=== PATIENT | female | born 1990 | race Two or more races ===

== ENCOUNTER 2021-01-23 09:19 | Emergency (ER) | payer MEDICAID, SELFPAY ==
[2021-01-23 09:22] VITALS: BP 129/86; PULSE 87; RESP 18; TEMP 36.4; O2SAT 99; BMI 44.9
--- NOTE | 2021-01-23 10:34 | ED.FEMALEGU ---
HPI - Female Genitourinary General Chief complaint: Urogenital-Female Stated complaint: ?UTI Time Seen by Provider: 01/23/21 09:39 Source: patient Mode of arrival: ambulatory Limitations: no limitations History of Present Illness HPI Narrative: 30 yo female presenting with complaints of UTI for the last 1 week. She states she has burning with urination, increased frequency and urgency. She has lower abdominal discomfort and yesterday that radiates into her right lower back. She is sexually active but is s/p tubal ligation, not concerned for or STI. She has no vaginal discharge. MD elicited complaint: dysuria, UTI and back pain Pertinent past history: recurrent UTIs (not in a few years) Onset (ago): week(s) (1) Location of symptoms: suprapubic and urethra Severity: moderate Female Urogenital Radiation: R Flank Severity scale (1-10): 6 Quality of pain: burning Consistency: intermittent Vaginal discharge: none Vaginal bleeding: none Urinary symptoms: Dysuria, Urgency, Frequency and Foul Smelling Urine Exacerbating factors: urination Relieving factors: none Associated symptoms: fever (101 x1 yesterday) and nausea Treatment prior to arrival: none Sexual activity: Yes Patient : No Related Data Previous Rx's Medication Instructions Recorded nitrofurantoin 100 mg PO Q12H 7 Days #14 cap 01/23/21 monohydrate/macrocrystals 100 mg capsule (Macrobid) Allergies Allergy/AdvReac Type Severity Reaction Status Date / Time No Known Allergies Allergy Unverified 01/10/20 19:51 [No Known Allergies*] Review of Systems Review of Systems: Constitutional: + Fever, No Chills Cardiovascular: No Chest Pain, No SOB, No Orthopnea, No Edema Respiratory: No Cough, No Sputum, No Wheezing, No dyspnea Gastrointestinal: + Nausea, No Vomiting, No Diarrhea, No abdominal Pain Genitourinary: + Dysuria, + Urinary Frequency, No Hematuria Musculoskeletal: No joint pain, + Myalgias Skin: No Skin Lesions, No rash Neuro: No Dizziness, Heme/Lymph: No Bruising, No Lymphadenopathy PMFSH Past Medical History Medical History (Updated 01/23/21 @ 11:15 by DANIELLE Cantu) No known health problems Social History Social History Advance Directives: No Patient : No Physical Exam Vital Signs: Vital Signs: Last Vital Signs Temp 97.5 F 01/23/21 09:22 Pulse 87 01/23/21 09:22 Resp 18 01/23/21 09:22 BP 129/86 01/23/21 09:22 Pulse Ox 99 01/23/21 09:22 Body Mass Index 44.9 Appearance: Alert. Oriented X3. No acute distress. HEENT: normal to inspection Neck: Normal inspection. Neck supple. CVS: Normal heart rate and rhythm. Pulses normal. Respiratory: No respiratory distress. Breath sounds normal. Abdomen: Soft and nontender. +BS x4. No CVA tenderness. Pelvic deferred. Skin: Skin warm and dry. Normal skin color. Normal skin turgor. No rashes. Extremities: No lower extremity edema. Neuro: Oriented X 3, nonfocal Course Course Course Narrative: 30 y/o female presenting with signs and symptoms of UTI. Afebrile and nontoxic on exam, no CVA tenderness. Doubt pyelonephritis. UA showing blood consistent with cystitis. Will treat with PO abx given her symptoms. Encouraged to follow up with PCP for follow up. Stable for d/c home. MDM - Female Genitourinary Lab Data Labs: Lab Results 01/23/21 01/23/21 Range/Units 10:27 10:27 Urine Color YELLOW Urine Appearance HAZY Urine pH 6.0 (5.0-8.0) Ur Specific [place] >= 1.030 H (1.005-1.025) Urine Protein NEG (NEG-TRACE) MG/DL Urine Glucose (UA) NEG (NEG) MG/DL Urine Ketones NEG (NEG) MG/DL Urine Blood 2+ H (NEG) Urine Nitrite NEG (NEG) Ur Leukocyte Esterase NEG (NEG) Urine RBC 5-9 H (0) /HPF Urine WBC 0 (0-4) /HPF Ur Squamous Epith Cells 2+ /LPF Urine Bacteria NONE /LPF Urine Mucus 2+ /LPF Urine Test NEGATIVE (NEGATIVE) Critical Care Time Critical Care Time Critical Care Time: No Discharge Plan Discharge Clinical Impression: Cystitis Patient Disposition: Home, Self-Care Instructions: Urinary Tract Infection in Women (ED), Interstitial Cystitis (ED) Additional Instructions: Take the antibiotic as prescribed. Drink plenty of water. No sexual activity until antibiotics are completed and all of your symptoms are completely resolved. Follow up with your doctor. If you develop new or worsening symptoms call 911 or come back to the ER for further evaluation. Prescriptions: New nitrofurantoin monohyd/m-cryst [Macrobid] 100 mg capsule 100 mg PO Q12H 7 Days Qty: 14 RF: 0 Referrals: Kaelyn Adams, BUSINESS SERVICES SALES REPRESENTATIVE [Primary Care Provider] - 1 week Interventions: ED Discharge Assessment Last Done: 01/23/21 11:28 Discharge Date/Time: 01/23/21 11:28
[2021-01-23 10:35] LABS: Appearance Urine HAZY; Color Urine YELLOW; Glucose Urine UA NEG (NEG); Leukocyte Esterase Urine NEG (NEG); Nitrite Urine NEG (NEG); Specific Gravity - Urine >= 1.030 (1.005-1.025); UACC Culture Trigger NO; Urine Blood 2+ (NEG); Urine Ketones NEG (NEG); Urine Protein NEG (NEG-TRACE)
[2021-01-23 10:37] LABS: UPreg QC Valid YES; Urine Pregnancy NEGATIVE (NEGATIVE)
[2021-01-23 10:46] LABS: Mucus Urine 2+ /LPF; Squamous Epithelial Cell Urine 2+ /LPF; WBC Urine 0 /HPF (0-4)
== END 2021-01-23 11:28 | disposition home or self-care (01) ==
PROVIDERS: Physician Assistant; Emergency Provider Emergency Medicine; PCP Nurse Practitioner Family
DX: N30.10 Interstitial cystitis (chronic) without hematuria (principal); R30.0 Dysuria; Z79.899 Other long term (current) drug therapy
CPT/HCPCS: 81001; 81025; 99283; 99284

== ENCOUNTER 2021-10-30 07:14 | Emergency (ER) | payer MEDICAID, SELFPAY ==
[2021-10-30 07:17] VITALS: BP 116/75; PULSE 108; RESP 20; TEMP 36.3; O2SAT 97; BMI 44.9
--- NOTE | 2021-10-30 07:26 | ED.SKABFB ---
HPI - Skin/Abscess/Foreign Bdy General Chief complaint: Skin/Abscess/Foreign Body Stated complaint: Rash Time Seen by Provider: 10/30/21 07:26 Source: patient Mode of arrival: ambulatory Limitations: no limitations History of Present Illness MD complaint: rash (hives) Onset (ago): hour(s) (just prior to arrival ) Tetanus up to date: unsure Location: generalized Severity: moderate Quality: pruritic Relieving factors: none Exacerbating factors: none Context: none Associated symptoms: denies other symptoms Treatments prior to arrival: none Related Data Previous Rx's Medication Instructions Recorded nitrofurantoin 100 mg PO Q12H 7 days #14 caps 01/23/21 monohydrate/macrocrystals 100 mg capsule (Macrobid) cetirizine 10 mg tablet 10 mg PO DAILY PRN allergy 10/30/21 symptoms #30 tabs famotidine 20 mg tablet (Pepcid) 20 mg PO DAILY #10 tabs 10/30/21 prednisone 20 mg tablet 40 mg PO DAILY 4 days #8 tabs 10/30/21 Allergies Allergy/AdvReac Type Severity Reaction Status Date / Time No Known Allergies Allergy Unverified 10/30/21 07:20 [No Known Allergies*] Review of Systems Review of Systems: Constitutional : No Fever, No Chills ENT/Mouth : no oral swelling, No Hoarseness, No Swallowing Difficulty Eyes: No Eye Pain, No Swelling, No Redness Cardiovascular : No Chest Pain, No SOB Respiratory : No Cough, No Sputum, No Wheezing, No Smoke Exposure, No Dyspnea Gastrointestinal : No Nausea, No Vomiting, No Diarrhea, No abdominal Pain Genitourinary : No Dysuria, No Urinary Frequency, No Hematuria Musculoskeletal : No joint pain, No Myalgias, No Joint Swelling Skin : No Skin Lesions, positive rash Neuro : No Weakness, No Numbness, No Headache Psych : No Anxiety/Panic, No Depression Heme/Lymph: No Bruising, No Lymphadenopathy Endocrine : No Polyuria, No Polydipsia All other systems reviewed and are negative [facility] Past Medical History Attestation statement: The following information was validated with the patient. Medical History No known health problems Social History Social History (Updated 10/30/21 @ 07:37 by Maryuri Gonzalez DO) Patient Tobacco Use Status: Never used Tobacco Advance Directives: Yes Advance Directives Information Provided: Yes Advance Directives on File: No Physical Exam Vital Signs: Vital Signs: Last Vital Signs Temp 97.4 F 10/30/21 07:17 Pulse 108 H 10/30/21 07:17 Resp 20 10/30/21 07:17 BP 116/75 10/30/21 07:17 Pulse Ox 97 10/30/21 07:17 O2 Del Method 10/30/21 07:17 BMI result Body Mass Index 44.9 Appearance: Alert. Oriented X3. No acute distress. Eyes: Pupils equal, round and reactive to light. ENT: Pharynx normal. no swelling Neck: Normal inspection. Neck supple. CVS: Normal heart rate and rhythm. Pulses normal. Respiratory: No respiratory distress. Breath sounds normal. Abdomen: Soft and nontender. Skin: Skin warm and dry. Normal skin color. diffuse patchy hives noted on trunk and extremities - not covered in patchy areas Extremities: No lower extremity edema. No calf ttp Neuro: Oriented X 3. No motor deficit. No sensory deficit. MDM - Skin/Abscess/Foreign Bdy MDM Narrative Medical decision making narrative: 31 yo female with no sig PMH comes in with patchy hives on her body no airway involvement - no known exposures or new medications. Refuses to take benadryl - at this time will offer claritin, pepcid, prednisone and observe Discharge Plan Discharge Clinical Impression: Urticaria Instructions: Urticaria (ED) Additional Instructions: return to ED for any worsening symptoms or concerns Prescriptions: New famotidine [Pepcid] 20 mg tablet 20 mg PO DAILY Qty: 10 0RF cetirizine 10 mg tablet 10 mg PO DAILY PRN (Reason: allergy symptoms) Qty: 30 0RF prednisone 20 mg tablet 40 mg PO DAILY 4 Days Qty: 8 0RF No Action nitrofurantoin monohyd/m-cryst [Macrobid] 100 mg capsule 100 mg PO Q12H 7 Days Qty: 14 0RF Rx Instructions: must administer with a meal/food Referrals: Physician,None [Primary Care Provider] - (PCP if not better in 2 days) Stand Alone Forms: Work/School Release
[2021-10-30] MEDS: Loratadine 10 MG TABLET PO (08:34)
[2021-10-30] MEDS: Famotidine 20 MG TABLET PO (08:34)
[2021-10-30] MEDS: predniSONE 20 MG TABLET 60 MG PO (08:34)
--- NOTE | 2021-10-30 08:35 | PC.NURSE ---
PT EVALUATED BY PROVIDER. MEDICATIONS ORDERED. PT MEDICATED. C/O ITCHY RASH. AIRWAY PATENT. MANAGING SECRETIONS. NO ACUTE DISTRESS NOTED.
== END 2021-10-30 09:09 | disposition home or self-care (01) ==
PROVIDERS: Emergency Provider Emergency Medicine
DX: L50.9 Urticaria, unspecified (principal)
CPT/HCPCS: 99283

== ENCOUNTER 2021-10-31 07:50 | Emergency (ER) | payer MEDICAID, SELFPAY ==
[2021-10-31 07:53] VITALS: BP 157/90; PULSE 98; RESP 18; TEMP 36.8; O2SAT 97; BMI 44.9
--- NOTE | 2021-10-31 09:43 | ED_ITS ---
HPI - Skin/Abscess/Foreign Bdy General Chief complaint: Skin/Abscess/Foreign Body Stated complaint: returning for rash on vagina Time Seen by Provider: 10/31/21 08:09 Source: patient Mode of arrival: ambulatory Limitations: no limitations History of Present Illness HPI narrative: 31-year-old female who was here yesterday and diagnosed with an itchy rash. Patient had patchy hives, and Claritin, Pepcid, and prednisone were sent to her pharmacy. Patient states the rash started 05:00 yesterday morning. Patient pharmacy is [facility] , [address], patient states she went there twice yesterday and the pharmacy did not receive her prescriptions. She did buy [id number] Claritin, it did not help She denies throat swelling, wheezing, shortness of breath, she denies any new soaps, lotions, shampoos, body washes, conditioners, new clothes, new foods, new sheets, new pets. Patient has no allergies that she knows of, although she does states that Benadryl makes her anxious so she cannot take Benadryl complaint: rash Onset (ago): day(s) (1) Tetanus up to date: unsure Location: chest, LLE and RLE Severity: severe Quality: pruritic Relieving factors: none Associated symptoms: denies other symptoms Treatments prior to arrival: other (Claritin) Related Data Previous Rx's Medication Instructions Recorded nitrofurantoin 100 mg PO Q12H 7 days #14 caps 01/23/21 monohydrate/macrocrystals 100 mg capsule (Macrobid) cetirizine 10 mg tablet 10 mg PO DAILY PRN allergy 10/30/21 symptoms #30 tabs famotidine 20 mg tablet (Pepcid) 20 mg PO DAILY #10 tabs 10/30/21 prednisone 20 mg tablet 40 mg PO DAILY 4 days #8 tabs 10/30/21 famotidine 20 mg tablet 20 mg PO DAILY 7 days #7 tabs 10/31/21 prednisone 20 mg tablet 60 mg PO DAILY 5 days #15 tabs 10/31/21 Allergies Allergy/AdvReac Type Severity Reaction Status Date / Time No Known Allergies Allergy Unverified 10/30/21 07:20 [No Known Allergies*] Review of Systems Constitutional: Constitutional: Denies body ache(s), Denies chills, Denies fatigue, Denies fever(s), Denies headache(s), Denies malaise and Denies weakness Eyes: Eyes: Denies diplopia ENT: Denies vertigo, Denies dizziness, Denies otalgia, Denies headache(s), Denies mouth pain, Denies post nasal drip, Denies sinus pain, Denies sinus pressure, Denies sore throat and Denies throat swelling Cardiovascular: Cardiovascular: Denies chest pain, Denies syncope, Denies leg edema, Denies lightheadedness, Denies Loss of Consciousness, Denies palpitations and Denies dyspnea Respiratory: Respiratory: Denies chest congestion, Denies cough and Denies dyspnea Gastrointestinal: Gastrointestinal: Denies abdominal pain, Denies hematochezia, Denies constipation, Denies diarrhea, Denies nausea and Denies vomiting Musculoskeletal: Musculoskeletal: Reports no additional musculoskeletal complaints Integumentary/Breasts: Skin/Breast: Reports rash, Denies skin pain and Denies unusual bruising Neurologic: Denies confusion, Denies vertigo, Denies dizziness, Denies syncope, Denies headache(s) and Denies weakness Psychiatric: Psychiatric: Denies anxiety, Denies confusion and Denies depression Endocrine: Endocrine: Denies fatigue and Denies palpitations Allergic/Immunologic: Allergic/Immunologic: Denies throat swelling PMFSH Past Medical History Medical History No known health problems Social History Social History (Updated 10/30/21 @ 07:37 by Maryuri Gonzalez DO) Patient Tobacco Use Status: Never used Tobacco Advance Directives: No Advance Directives Information Provided: Yes Physical Exam Vital Signs: Vital Signs: Last Vital Signs Temp 98.2 F 10/31/21 07:53 Pulse 98 10/31/21 07:53 Resp 18 10/31/21 07:53 BP 157/90 H 10/31/21 07:53 Pulse Ox 97 10/31/21 07:53 O2 Del Method 10/31/21 07:53 BMI result Body Mass Index 44.9 Const: General: No confusion Nutritional Appearance: well nourished Orientation/consciousness: No confusion Limitations: no limitations HEENT: Head: Yes normal to inspection, Yes normocephalic and Yes atraumatic Ears: hearing grossly normal bilaterally, external ears normal, TM's normal bilaterally and EAC's normal General nose exam: Normal external nose present Face and sinus: Yes normal facial exam and Yes sinuses nontender Mouth: Normal oral and palatal mucosa present Throat: Yes posterior oropharynx normal Eyes: Conjunctivae: conjunctivae normal Pupils: Equal, round and reactive pupils present EOM: EOMs intact bilaterally Neck: Neck: Yes full ROM, Yes no lymphadenopathy and Yes supple Resp: Effort & Inspection: normal respiratory effort and able to speak in complete sentences Auscultation: clear to auscultation bilaterally, no crackles, no rales, no rhonchi and no wheezes Cardio: Rate: regular rate Rhythm: regular rhythm Heart sounds: S1 normal heart sound present and S2 normal heart sound present GI: Inspection: Yes normal to inspection Palpation (GI): Soft to palpation, nontender, no guarding and not rigid Percussion: Yes normal to percussion Auscultation: normal bowel sounds Skin: Other: Urticarial rash bilateral inner thighs, across patient's upper trunk Rash is erythematous, and in wheals Rashes: rashes noted Neuro: General: No confusion Cranial nerves: Yes Equal, round and reactive pupils present Extrem: General: Yes normal to inspection and Yes full ROM Psych: Appearance: grossly normal Affect: normal affect Attitude: cooperative Thought process: Normal thought process present Course Course Course Narrative: 31-year-old female presents with an urticarial hive like rash that started 05:00 this morning with no known allergen. Patient tried to fill a prescription at her pharmacy yesterday, but states that prescriptions were not sent to the pharmacy yesterday. Will represcribed prednisone and Pepcid. Patient states she cannot take Benadryl. Counseled patient to call emergency room in as for me if she cannot fill these prescriptions or if there is a problem. Counseled patient to return to emergency room she has any throat swelling, lip swelling, face swelling, shortness of breath, wheezing, chest pain. Patient has verbalized agreement and understanding Discharge Plan Discharge Clinical Impression: Rash Patient Disposition: Home, Self-Care Additional Instructions: Please call me of these prescriptions do not arrive at your pharmacy. I am here until 18:00, my name is Laura. Please take prednisone right when you get it, take it in the morning on the following 4 days, as it can make you have trouble sleeping Please call your PCP for follow-up appointment, they may want to send you to an brass and wind instrument repairer for testing to try to find out what you are reacting to Please return to emergency room if you have any wheezing, sensation of throat closing, trouble breathing, chest pain, abdominal pain, vomiting, or any other new or concerning symptoms Prescriptions: New famotidine 20 mg tablet 20 mg PO DAILY 7 Days Qty: 7 0RF prednisone 20 mg tablet 60 mg PO DAILY 5 Days Qty: 15 0RF No Action famotidine [Pepcid] 20 mg tablet 20 mg PO DAILY Qty: 10 0RF cetirizine 10 mg tablet 10 mg PO DAILY PRN (Reason: allergy symptoms) Qty: 30 0RF prednisone 20 mg tablet 40 mg PO DAILY 4 Days Qty: 8 0RF nitrofurantoin monohyd/m-cryst [Macrobid] 100 mg capsule 100 mg PO Q12H 7 Days Qty: 14 0RF Rx Instructions: must administer with a meal/food Interventions: ED Discharge Assessment Last Done: 10/31/21 08:26 Discharge Date/Time: 10/31/21 08:52
== END 2021-10-31 08:52 | disposition home or self-care (01) ==
LOC: HO.ED 08:36
PROVIDERS: Emergency Provider Emergency Medicine
DX: L50.9 Urticaria, unspecified (principal)
CPT/HCPCS: 99282; 99283

== ENCOUNTER 2022-08-04 07:36 | Emergency (ER) | payer OTHER, SELFPAY ==
[2022-08-04 07:40] VITALS: BP 136/84; PULSE 90; RESP 17; TEMP 36.7; O2SAT 98; BMI 44.9
[2022-08-04 08:11] VITALS: BP 120/61; PULSE 83; RESP 19; TEMP 36.4; O2SAT 100
--- NOTE | 2022-08-04 08:30 | ED.URI ---
HPI - URI/Sore Throat General Chief Complaint: Upper Respiratory Symptoms Stated Complaint: Cough Sore Throat Ear Pain Time Seen by Provider: 08/04/22 08:02 Source: patient Mode of arrival: ambulatory Limitations: no limitations History of Present Illness HPI Narrative: 32 yo female presenting to the ER for evaluation of bilateral ear pain, sore throat and dry cough that started yesterday. She states the cough kept her up last night causing pain in her back and chest. She reports some nasal congestion with green nasal discharge as well. She has no history of seasonal allergies. No watery eyes or sneezing. She denies any chest pain, SOB, difficulty breathing, N/V/D or abdominal pain. No fevers or sick contacts. MD elicited complaint: cough, sore throat, nasal congestion and other (ear pain) Onset (ago): day(s) (1) Consistency: progressively worsening Severity: moderate Description of mucous: green Able to tolerate fluids by mouth: Yes Exacerbating factors: supine positioning Relieving factors: nothing Associated symptoms: headache, nasal congestion, sore throat and cough Treatments prior to arrival: none Related Data Previous Rx's Medication Instructions Recorded nitrofurantoin 100 mg PO Q12H 7 days #14 caps 01/23/21 monohydrate/macrocrystals 100 mg capsule (Macrobid) cetirizine 10 mg tablet 10 mg PO DAILY PRN allergy 10/30/21 symptoms #30 tabs famotidine 20 mg tablet (Pepcid) 20 mg PO DAILY #10 tabs 10/30/21 prednisone 20 mg tablet 40 mg PO DAILY 4 days #8 tabs 10/30/21 famotidine 20 mg tablet 20 mg PO DAILY 7 days #7 tabs 10/31/21 prednisone 20 mg tablet 60 mg PO DAILY 5 days #15 tabs 10/31/21 benzonatate 100 mg capsule 100 mg PO TID PRN cough #30 caps 08/04/22 fluticasone propionate 50 1 spray intranasal BID #16 grams 08/04/22 mcg/actuation nasal spray,suspension (Flonase Allergy Relief) hydrocodone-homatropine 5 mg-1.5 5 ml PO Q4H PRN cough #60 mL 08/04/22 mg/5 mL (5 mL) oral syrup (Hycodan) ibuprofen 600 mg tablet 600 mg PO Q8H PRN fever or pain 08/04/22 #14 tabs Allergies Allergy/AdvReac Type Severity Reaction Status Date / Time No Known Allergies Allergy Verified 08/04/22 07:42 [No Known Allergies*] Review of Systems Review of Systems: Yes all other systems are reviewed and are negative [facility] Past Medical History Medical History No known health problems Social History Social History (Updated 10/30/21 @ 07:37 by Ana Gonzalez DO) Alcohol intake: never Patient Tobacco Use Status: Never used Tobacco Smoked in Last 30 Days: No Use of substances other than those prescribed or required for medical reasons: No Advance Directives: No Advance Directives Information Provided: Yes Physical Exam Vital Signs: Vital Signs: Last Vital Signs Temp 97.6 F 08/04/22 08:11 Pulse 83 08/04/22 08:11 Resp 19 08/04/22 08:11 BP 120/61 08/04/22 08:11 Pulse Ox 100 08/04/22 08:11 O2 Del Method Room Air 08/04/22 08:11 BMI result Body Mass Index 44.9 Appearance: Alert. Oriented X3. No acute distress. Head: normocephalic, atraumatic. Eyes: Pupils equal, round and reactive to light. ENT: Pharynx normal. s/p tonsillectomy. minimal posterior pharyngeal erythema. uvula midline. nares with clear nasal discharge. TMs bilaterally have effusion but no erythema or bulging. Neck: Normal inspection. Neck supple. CVS: Normal heart rate and rhythm. Pulses normal. Respiratory: No respiratory distress. Breath sounds normal. Skin: Skin warm and dry. Normal skin color. Normal skin turgor. No rashes. Extremities: No lower extremity edema. No joint swelling. Neuro/psych: Oriented X 3. grossly normal, nonfocal. Normal speech and cognition. Medical Decision Making Medical Decision Making MDM Narrative: 32 yo female presenting with sore throat, ear pain, dry cough and nasal congestion since yesterday. VSS on arrival and physical exam is benign. Viral PCR negative for covid, flu and rsv. most likely viral URI - we discussed symptomatic management and supportive care. will d/c home with antitussives, work not provided per request Differential Diagnosis Differential Diagnoses: The differential diagnosis associated with the presentation includes strep, covid, flu, rsv, other viral syndrome, bronchitis, pneumonia, seasonal allergies, no evidence of peritonsillar abcsess or retropharyngeal abscess Lab Data MDM Lab Attestation statement: I reviewed the patient's lab results. Labs: Lab Results 08/04/22 Range/Units 07:58 Influenza Type A (PCR) NEGATIVE (Negative) Influenza Type B (PCR) NEGATIVE (Negative) RSV RNA Qual (PCR) NEGATIVE (Negative) SARS-CoV-2 RNA (RT-PCR) NEGATIVE (Negative) External Record Review External record reviewed: Outpatient record and Prior outpatient labs Prescription Management I considered prescription management with: Other (antitussives ) Critical Care Time Critical Care Time Critical Care Time: No Discharge Plan Discharge Clinical Impression: Viral URI with cough Patient Disposition: Home, Self-Care Instructions: Viral Syndrome (ED) Additional Instructions: You tested negative for COVID, Flu and RSV Symptoms are most likely due to another viral illness Treatment is rest and supportive care Take over the counter medications as needed for your symptoms Take the prescribed medications as directed Rest and drink plenty of fluids Follow up with your primary care doctor If you develop new or worsening symptoms call 911 or come back to the ER for further evaluation. Prescriptions: New benzonatate 100 mg capsule 100 mg PO TID PRN (Reason: cough) Qty: 30 0RF hydrocodone-homatropine [Hycodan] 5-1.5 mg/5 mL (5 mL) syrup 5 ml PO Q4H PRN (Reason: cough) Qty: 60 0RF Rx Instructions: Partial Fill upon patient request. fluticasone propionate [Flonase Allergy Relief] 50 mcg/actuation spray,suspension 1 spray intranasal BID Qty: 16 0RF Rx Instructions: administer into each nostril ibuprofen 600 mg tablet 600 mg PO Q8H PRN (Reason: fever or pain) Qty: 14 0RF No Action famotidine [Pepcid] 20 mg tablet 20 mg PO DAILY Qty: 10 0RF cetirizine 10 mg tablet 10 mg PO DAILY PRN (Reason: allergy symptoms) Qty: 30 0RF prednisone 20 mg tablet 40 mg PO DAILY 4 Days Qty: 8 0RF famotidine 20 mg tablet 20 mg PO DAILY 7 Days Qty: 7 0RF prednisone 20 mg tablet 60 mg PO DAILY 5 Days Qty: 15 0RF nitrofurantoin monohyd/m-cryst [Macrobid] 100 mg capsule 100 mg PO Q12H 7 Days Qty: 14 0RF Rx Instructions: must administer with a meal/food Stand Alone Forms: Work/School Release Interventions: ED Discharge Assessment Last Done: 08/04/22 08:54 Discharge Date/Time: 08/04/22 08:57
[2022-08-04 08:40] LABS: Influenza A PCR NEGATIVE (Negative); Influenza B PCR NEGATIVE (Negative); Resp Syncy Virus RNA Qual PCR NEGATIVE (Negative); SARS COV2 PCR INHOUSE NEGATIVE (Negative)
== END 2022-08-04 08:57 | disposition home or self-care (01) ==
PROVIDERS: Emergency Provider Emergency Medicine
DX: J06.9 Acute upper respiratory infection, unspecified (principal); J02.9 Acute pharyngitis, unspecified; H92.03 Otalgia, bilateral; R05.8 Other specified cough; Z20.822 Contact with and (suspected) exposure to COVID-19
CPT/HCPCS: 0241U; 99283; 99284

== ENCOUNTER 2024-11-24 18:01 | Emergency (ER) | payer OTHER, SELFPAY ==
--- NOTE | ~2024-11-24 | XR_ITS ---
CLINICAL HISTORY: atraumatic pain and swelling Three views of the right foot. COMPARISON: None provided. FINDINGS: No ankle joint effusion. Normal tarsometatarsal alignment. Tarsals, metatarsals and phalanges appear intact. IMPRESSION: 1. No radiographic evidence of acute injury to the bones of the right foot. No radiopaque foreign body. This document has been electronically signed by: Temo Cooper MD on 11/24/2024 18:46:37
--- NOTE | ~2024-11-24 | XR_ITS ---
CLINICAL HISTORY: atraumatic pain and swelling Three views of the right ankle. COMPARISON: None provided. FINDINGS: No ankle joint effusion. Small calcaneal enthesophyte and plantar calcaneal spur. Ankle mortise appears symmetric on non-stressed views. Talar dome appears intact. Distal tibia and fibula appear intact. Visualized tarsal bones appear intact. IMPRESSION: 1. No radiographic evidence of acute injury to the right ankle. This document has been electronically signed by: Temo Cooper MD on 11/24/2024 18:57:41
--- NOTE | ~2024-11-24 | US_ITS ---
CLINICAL HISTORY: atraumatic pain and swelling Venous duplex ultrasound right lower extremity COMPARISON: None provided. FINDINGS: The visualized deep veins are fully compressible with normal Doppler color flow and spectral tracings. No popliteal cyst. Contralateral left common femoral vein demonstrates normal flow. IMPRESSION: 1. Negative for right lower extremity deep vein thrombosis. This document has been electronically signed by: Temo Cooper MD on 11/24/2024 19:46:50
[2024-11-24 18:06] VITALS: BP 116/60; BP 172/102; PULSE 90; PULSE 96; RESP 17; TEMP 36.8; O2SAT 97; O2SAT 98; BMI 44.9
--- NOTE | 2024-11-24 18:12 | ED.GENADULT ---
HPI - General Adult General Chief complaint: Extremity Injury, Lower Stated complaint: R leg pain/swelling Time Seen by Provider: 11/24/24 20:24 Source: patient Limitations: no limitations History of Present Illness ED Provider: Merari Strong PA-C HPI narrative: 34-year-old female who is morbidly obese with a history of fibromyalgia complains of atraumatic right foot/ankle pain x3 days. Pain worse with a ambulating. The pain is most pronounced anterior ankle. Denies the use of non supportive foot wear, redness, warmth or swelling. Denies fever. Denies new swelling of the calf. No chest pain or shortness of breath. Related Data Previous Rx's ?Medication ?Instructions ?Recorded nitrofurantoin 100 mg PO Q12H 7 days #14 caps 01/23/21 monohydrate/macrocrystals 100 mg capsule (Macrobid) cetirizine 10 mg tablet 10 mg PO DAILY PRN allergy 10/30/21 symptoms #30 tabs famotidine 20 mg tablet (Pepcid) 20 mg PO DAILY #10 tabs 10/30/21 prednisone 20 mg tablet 40 mg (2 x 20 mg) PO DAILY 4 days 10/30/21 #8 tabs famotidine 20 mg tablet 20 mg PO DAILY 7 days #7 tabs 10/31/21 prednisone 20 mg tablet 60 mg (3 x 20 mg) PO DAILY 5 days 10/31/21 #15 tabs benzonatate 100 mg capsule 100 mg PO TID PRN cough #30 caps 08/04/22 fluticasone propionate 50 1 spray intranasal BID #16 grams 08/04/22 mcg/actuation nasal spray,suspension (Flonase Allergy Relief) hydrocodone-homatropine 5 mg-1.5 5 ml PO Q4H PRN cough #60 mL 08/04/22 mg/5 mL (5 mL) oral solution (Hycodan) ibuprofen 600 mg tablet 600 mg PO Q8H PRN fever or pain 08/04/22 #14 tabs codeine 10 mg-guaifenesin 100 mg/5 5 ml PO Q4-6H PRN cough #120 mL 08/05/22 mL oral liquid ketorolac 10 mg tablet 10 mg PO Q6H PRN pain #20 tabs 11/24/24 methylprednisolone 4 mg tablets in 4 mg PO QAM #21 ea 11/24/24 a dose pack (Medrol (Art)) Allergies Allergy/AdvReac Type Severity Reaction Status Date / Time No Known Allergies (No Known Allergy Verified 11/24/24 18:10 Allergies*) Review of Systems Review of Systems: Yes all other systems are reviewed and are negative Constitutional: Constitutional: Denies fatigue and Denies fever(s) Cardiovascular: Cardiovascular: Denies chest pain and Denies dyspnea Respiratory: Respiratory: Denies dyspnea Musculoskeletal: Musculoskeletal: Reports arthralgias and Denies joint swelling Integumentary/Breasts: Skin/Breast: Denies erythema and Denies wounds Endocrine: Endocrine: Denies fatigue PMFSH Past Medical History Attestation statement: The following information was validated with the patient. Medical History No known health problems Social History Social History (Updated 10/30/21 @ 07:37 by Ana Gonzalez DO) Alcohol intake: never Patient Tobacco Use Status: Never used Tobacco Smoked in Last 30 Days: No Use of substances other than those prescribed or required for medical reasons: No Advance Directives: No Advance Directives Information Provided: No Do you have a plan to hurt others: No Plan Patient : No Physical Exam ED Vital Signs: Vital Signs - 24 hr 11/24/24 18:06 11/24/24 19:52 11/24/24 22:30 Temperature 98.3 F 97.8 F 98.2 F Pulse Rate 96 84 87 Respiratory Rate 17 18 16 Blood Pressure 116/60 121/73 117/73 Pulse Oximetry 97 98 99 Oxygen Delivery Method Room Air Room Air Room Air BMI result Body Mass Index 44.9 Const Other: Well-appearing Orientation/consciousness: patient oriented x3 Resp Effort & Inspection: normal respiratory effort Cardio Other: Normal peripheral perfusion Skin Other: Warm dry no rash Neuro General: patient oriented x3, no focal motor deficits and CN's II-XI intact bilaterally Extrem Other: No objective swelling of the calf or the ankle, patient able to flex and extend, although unwilling secondary to pain, no overlying redness or erythema Psych Other: Calm cooperative Course Course Course Narrative: Patient is a 34-year-old female who presents emergency department via EMS for evaluation. She has been experiencing atraumatic pain and swelling to the right foot/ankle over the past 3 days. Having difficulty ambulating due to the pain. Reports that she was seen at [facility] on , evidently had an x-ray done but was advised that they could not visualize the bone due to her increased swelling. Plan: XR, venous duplex ultrasound Medications Administered Discontinued Medications Generic Name Dose Route Start Last Admin Trade Name Michelle PRN Reason Stop Dose Admin Ketorolac Tromethamine 15 mg 11/24/24 21:16 11/24/24 21:38 Ketorolac Tromethamine 15 Mg/Ml Vial IM 11/24/24 21:17 15 mg ONCE ONE Administration Prednisone 20 mg 11/24/24 21:16 11/24/24 21:37 Prednisone 20 Mg Tablet PO 11/24/24 21:17 20 mg ONCE ONE Administration Medical Decision Making Medical Decision Making [facility] Narrative: 34-year-old female who is morbidly obese with a history of fibromyalgia complains of atraumatic right foot/ankle pain x3 days. Pain worse with a ambulating. The pain is most pronounced anterior ankle. Denies the use of non supportive foot wear, redness, warmth or swelling. Denies fever. Denies new swelling of the calf. No chest pain or shortness of breath. : Obesity, fibromyalgia History: Per patient I have considered the following differential diagnoses: Fracture, dislocation, arthritis, sprain, DVT, septic effusion Plan: X-rays were obtained of the foot and ankle they are unremarkable, there was no effusion, her exam was not consistent with a septic joint. Ultrasound obtained there was no DVT. Unclear etiology for her symptoms, sending her with the home care instructions and crutches, anti-inflammatories, giving her ortho contact. I have independently reviewed the following tests: DVT right lower extremity:FINDINGS: The visualized deep veins are fully compressible with normal Doppler color flow and spectral tracings. No popliteal cyst. Contralateral left common femoral vein demonstrates normal flow. IMPRESSION: 1. Negative for right lower extremity deep vein thrombosis. X-ray right foot: FINDINGS: No ankle joint effusion. Normal tarsometatarsal alignment. Tarsals, metatarsals and phalanges appear intact. IMPRESSION: 1. No radiographic evidence of acute injury to the bones of the right foot. No radiopaque foreign body. X-ray right ankle :FINDINGS: No ankle joint effusion. Small calcaneal enthesophyte and plantar calcaneal spur. Ankle mortise appears symmetric on non-stressed views. Talar dome appears intact. Distal tibia and fibula appear intact. Visualized tarsal bones appear intact. IMPRESSION: 1. No radiographic evidence of acute injury to the right ankle. Discharge Plan Discharge Clinical Impression: Ankle pain, right Patient Disposition: Home, Self-Care Instructions: Arthralgia (ED), P.R.I.C.E. Treatment (ED) Additional Instructions: The x-rays of the right ankle and foot were normal. There were no acute findings on the ultrasound you do not have a clot in your leg. We do not have a clear reason why you were having discomfort. See home care instructions. Take the ketorolac as directed this is an anti-inflammatory take it with food, take the steroid taper as directed this is an additional anti-inflammatory. Use the crutches as needed, bear weight as tolerated. I am providing you with a contact for our orthopedic service, if your symptoms do not improve. Otherwise follow up with primary care as needed. Prescriptions: New methylprednisolone [Medrol (Art)] 4 mg tablets,dose pack 4 mg PO QAM Qty: 21 0RF Rx Instructions: Use per package instructions ketorolac 10 mg tablet 10 mg PO Q6H PRN (Reason: pain) Qty: 20 0RF Rx Instructions: maximum total duration of 5 days from all oral, intranasal, or parenteral formulations. The patient received an intramuscular dose of Toradol here in the emergency room No Action famotidine [Pepcid] 20 mg tablet 20 mg PO DAILY Qty: 10 0RF cetirizine 10 mg tablet 10 mg PO DAILY PRN (Reason: allergy symptoms) Qty: 30 0RF prednisone 20 mg tablet 40 mg PO DAILY 4 Days Qty: 8 0RF famotidine 20 mg tablet 20 mg PO DAILY 7 Days Qty: 7 0RF prednisone 20 mg tablet 60 mg PO DAILY 5 Days Qty: 15 0RF nitrofurantoin monohyd/m-cryst [Macrobid] 100 mg capsule 100 mg PO Q12H 7 Days Qty: 14 0RF Rx Instructions: must administer with a meal/food benzonatate 100 mg capsule 100 mg PO TID PRN (Reason: cough) Qty: 30 0RF hydrocodone-homatropine [Hycodan] 5-1.5 mg/5 mL (5 mL) syrup 5 ml PO Q4H PRN (Reason: cough) Qty: 60 0RF Rx Instructions: Partial Fill upon patient request. fluticasone propionate [Flonase Allergy Relief] 50 mcg/actuation spray,suspension 1 spray intranasal BID Qty: 16 0RF Rx Instructions: administer into each nostril ibuprofen 600 mg tablet 600 mg PO Q8H PRN (Reason: fever or pain) Qty: 14 0RF codeine-guaifenesin 10-100 mg/5 mL liquid 5 ml PO Q4-6H PRN (Reason: cough) Qty: 120 0RF Referrals: Bill Sandoval MD [Physician, Orthopedics] Referral Note: right ankle arthralgia, unclear etiology Interventions: ED Discharge Assessment Last Done: 11/24/24 22:32 Print Language: Upper Sorbian
[2024-11-24 19:52] VITALS: BP 121/73; PULSE 84; RESP 18; TEMP 36.6; O2SAT 98
[2024-11-24 22:30] VITALS: BP 117/73; PULSE 87; RESP 16; TEMP 36.8; O2SAT 99
[2024-11-24 22:32] VITALS: BP 117/73; PULSE 87; RESP 16; TEMP 36.8; O2SAT 99
== END 2024-11-24 22:33 | disposition home or self-care (01) ==
PROVIDERS: Emergency Provider Internal Medicine; PCP Nurse Practitioner Family
DX: R60.0 Localized edema (principal); M79.671 Pain in right foot; M25.571 Pain in right ankle and joints of right foot
CPT/HCPCS: 73610; 73630; 93971; 96372; 99284; J1885

== ENCOUNTER → 2024-11-24 18:13 | Outpatient (BNV) | payer OTHER, SELFPAY | PROVIDERS: Visit Provider Radiology Diagnostic Radiology | DX: R22.41 Localized swelling, mass and lump, right lower limb (principal); M77.31 Calcaneal spur, right foot; M79.671 Pain in right foot | CPT/HCPCS: 73610; 73630; 93971 ==

== ENCOUNTER 2025-01-31 14:25 | Emergency (ER) | payer OTHER, SELFPAY ==
--- NOTE | ~2025-01-31 | CT_ITS ---
CLINICAL HISTORY: headache, neck pain CT Head WO Contrast COMPARISON: None provided FINDINGS: No acute intracranial hemorrhage. No evidence of acute infarction. No mass-effect or midline shift. No hydrocephalus. Visualized paranasal sinuses are clear. The mastoid air cells are clear. The visible orbits are normal. No acute fracture. Unremarkable soft tissues. IMPRESSION: No acute intracranial findings. This document has been electronically signed by: Ceferino Paredes MD on 01/31/2025 20:27:03
--- NOTE | ~2025-01-31 | CT_ITS ---
CLINICAL HISTORY: [facility] pain CT Cervical Spine WO Contrast COMPARISON: None provided FINDINGS: No acute fracture or malalignment. Reversal of the normal cervical lordosis, which could be due to patient positioning or muscle spasm. Soft tissues are normal. Lung apices are clear. IMPRESSION: No acute findings. This document has been electronically signed by: Ceferino Paredes MD on 01/31/2025 20:25:01
[2025-01-31 14:28] VITALS: BP 142/81; PULSE 101; RESP 20; TEMP 36.8; O2SAT 98; BMI 45.1
--- NOTE | 2025-01-31 14:28 | ED_ITS ---
HPI - General Adult General Chief complaint: Headache Stated complaint: headache Time Seen by Provider: 01/31/25 17:24 Source: patient Mode of arrival: ambulatory Limitations: no limitations History of Present Illness ED Provider: DANIELLE Mari HPI narrative: This is a 34-year-old female past medical history significant for obesity who presents to the emergency department for evaluation of posterior headache that started suddenly at approximately 13:30. She reports it started when she woke up, she reports ?it felt like someone hit me in the head ?. However she claims nobody hit her in the head. Pain is severe 01/02. She denies a history of headaches like this in the past she has had a headache before however it felt nothing like this. She also endorses intermittent lightheadedness/dizziness. She denies associated visual disturbances, weakness, fevers, chills, recent illness, chest pain, shortness of breath, nausea and vomiting. Related Data Previous Rx's ?Medication ?Instructions ?Recorded nitrofurantoin 100 mg PO Q12H 7 days #14 ca ps 01/23/21 monohydrate/macrocrystals 100 mg capsule (Macrobid) cetirizine 10 mg tablet 10 mg PO DAILY PRN allergy 0 10/30/21 symptoms #30 tabs famotidine 20 mg tablet (Pepcid) 20 mg PO DAILY #10 ta bs 10/30/21 prednisone 20 mg tablet 40 mg (2 x 20 mg) PO DAILY 4 days 10/30/21 #8 tabs famotidine 20 mg tablet 20 mg PO DAILY 7 days #7 tab s 10/31/21 prednisone 20 mg tablet 60 mg (3 x 20 mg) PO DAILY 5 days 10/31/21 #15 tabs benzonatate 100 mg capsule 100 mg PO TID PRN cough #30 caps 08/04/22 fluticasone propionate 50 1 spray intranasal BID #16 g andrea 08/04/22 mcg/actuation nasal spray,suspension (Flonase Allergy Relief) hydrocodone-homatropine 5 mg-1.5 5 ml PO Q4H PRN cough #60 mL 08/04/22 mg/5 mL (5 mL) oral solution (Hycodan) ibuprofen 600 mg tablet 600 mg PO Q8H PRN fever or p ain 08/04/22 #14 tabs codeine 10 mg-guaifenesin 100 mg/5 5 ml PO Q4-6H PRN c ough #120 mL 08/05/22 mL oral liquid ketorolac 10 mg tablet 10 mg PO Q6H PRN pain #20 ta bs 11/24/24 methylprednisolone 4 mg tablets in 4 mg PO QAM #21 ea 11/24/24 a dose pack (Medrol (Art)) Allergies Allergy/AdvReac Type Severity Reaction Status Date / Time diphenhydramine (From Allergy Anxiety Verified 01/31/25 14:31 Benadryl) Review of Systems 2 Review of Systems: Yes all other systems are reviewed and are negative [facility] Past Medical History Attestation statement: The following information was validated with the patient. Source: old records reviewed and nursing notes reviewed Medical History No known health problems Social History Social History Alcohol intake: never Patient Tobacco Use Status: Never used Tobacco Smoked in Last 30 Days: No Use of substances other than those prescribed or required for medical reasons: No Advance Directives: No Advance Directives Information Provided: Yes Do you have a plan to hurt others: No Plan Physical Exam ED Exam Exam: Appearance: Alert.? Oriented X3.? No acute distress.? Head: Normocephalic, atraumatic, no step-offs or deformities Eyes: Pupils equal, round and reactive to light.? ENT: Pharynx normal.? Neck: Normal inspection.? Neck supple.? No meningeal signs. CVS: Normal heart rate and rhythm.? Pulses normal.? Respiratory: No respiratory distress.? Breath sounds normal.? Abdomen: Soft and nontender.? Skin: Skin warm and dry.? Normal skin color.? Normal skin turgor.? Extremities: No lower extremity edema.? No calf ttp. 5/5 strength to bilateral upper and lower extremities Neuro: Oriented X 3.? No motor deficit.? No sensory deficit. CN 2-12 intact . Normal [id number], nwou-iz-[id number] steady tandem gait normal coordination. Negative Romberg and pronator drift. Vital Signs: Vital Signs - 24 hr 01/31/25 14:28 01/31/25 19:16 Temperature 98.2 F 98.7 F Pulse Rate 101 H 79 Respiratory Rate 20 18 Blood Pressure 142/81 H 117/64 Pulse Oximetry 98 96 Oxygen Delivery Method Room Air Room Air BMI result Body Mass Index 45.1 vss Course Course Course Narrative: This is a rapid medical exam performed by Marlen Reyna NP: Additional HPI, ROS, PE not included below will be deferred to primary provider. Patient is a 34y/o F presenting with complaint of headache and posterior neck pain x 1 hour, dizziness. States woke her from a nap. Denies history of headaches. Plan: viral swabs Reevaluation(s) Reevaluation #1: Patient's CBC unremarkable. ESR slightly elevated 32. Chemistry with no acute findings eating intervention. CRP elevated at 1.15. She does not have exquisite scalp tenderness visual disturbances making temporal arteritis less likely. COVID, influenza negative. CT head and neck pending. Patient did not get relief from Toradol, meclizine. Time: 20:38 Reevaluation #2: Patient's CT head with no acute intracranial findings. CT of cervical spine no acute findings. Patient feeling better however having some GI upset at this time. Will give Maalox. She points to her epigastric region Time: 20:39 Reevaluation #3: Patient will require re-evaluation of stable can be discharged home. Sign out to DANIELLE Hamilton Time: 20:48 Additional Reevaluation(s): 10:24 PM 01/31/2025 (Preet SANTOS): Patient passed PO challenge and is requesting discharge Medications Administered Discontinued Medications Generic Name Dose Route Start Last Admin Trade Name Freq PRN Reason Stop Dose Admin Al Hydroxide/Mg Hydroxide 15 ml 01/31/25 20:38 01/31/25 21:08 Magnesium Hydrox/Alum Hydrox 30 Ml Oral.Susp PO 01/31/25 20:39 15 ml ONCE ONE Administration Sodium Chloride 1,000 mls @ 999 mls/hr 01/31/25 18:15 01/31/25 20:40 Ns IV 01/31/25 19:15 Infused .Q1H1M ROBYN Infusion Ketorolac Tromethamine 30 mg 01/31/25 18:02 01/31/25 18:11 Ketorolac Tromethamine 15 Mg/Ml Vial IVPUSH 01/31/25 18:03 30 mg ONCE ONE Administration Meclizine HCl 25 mg 01/31/25 18:10 01/31/25 18:28 Meclizine Hcl 25 Mg Tablet PO 01/31/25 18:11 25 mg ONCE ONE Administration Morphine Sulfate 4 mg 01/31/25 19:06 01/31/25 19:18 Morphine Sulfate 4 Mg/Ml Cartridge IVPUSH 01/31/25 19:07 4 mg ONCE ONE Administration Protocol Medical Decision Making Medical Decision Making [facility] Narrative: 34-year-old female presents with sudden onset headache at 13:30. Reports it has been constant ever since. She does not have a history of migraines. Reports it is posterior in nature and severe 01/02. Physical exam benign. Vital signs stable. No meningeal signs. Neurological assessment nonfocal. Normal qpfnyt-[id number]-qcpb, tjqn-ec-xlkq. NIH stroke scale 0 Head scan was ordered from triage. Will also obtain basic labs. History and physical exam concerning for possible headache versus migraine. Unlikely intracranial hemorrhage, stroke, posterior stroke based off of my assessment and evaluation. Differential Diagnosis Differential Diagnoses: The differential diagnosis associated with the presentation includes (History and physical exam concerning for possible headache versus migraine. Unlikely intracranial hemorrhage, stroke, posterior stroke based off of my assessment and evaluation.) Admission/Observation Consideration of admission/observation: Escalation of care including admission/observation considered Lab Data [facility] Lab Attestation statement: I reviewed the patient's lab results. 01/31/25 18:00 01/31/25 18:00 Labs: Lab Results 01/31/25 01/31/25 Range/Units 14:39 18:00 WBC 7.9 (4.8-10.8) X10*3/uL RBC 4.64 (4.20-5.50) X10*6/uL Hgb 11.1 L (12.0-16.0) g/dl Hct 37.0 (37.0-47.0) % MCV 79.7 L (80.0-98.0) fL MCH 23.9 L (27.0-33.0) pg MCHC 30.0 L (31.0-35.0) g/dl RDW 16.3 H (11.0-16.0) % Plt Count 336 (160-400) X10*3/uL MPV 11.9 (9.4-12.3) fL Immature Gran % (Auto) 0.5 H (0.0-0.4) % Neut % (Auto) 68.3 (45-73) % Lymph % (Auto) 20.5 (20-40) % [place] % (Auto) 7.1 (2-11) % Eos % (Auto) 2.8 (0-4) % Baso % (Auto) 0.8 (0-2) % Lymph # (Auto) 1.6 (1.2-4.9) X10*3/uL [place] # (Auto) 0.6 (0.1-1.2) X10*3/uL Eos # (Auto) 0.2 (0.0-0.4) X10*3/uL Baso # (Auto) 0.1 (0.0-0.2) X10*3/uL Abs Immat Gran (auto) 0.04 H (0.00-0.03) X10*3/uL Absolute Neuts (auto) 5.4 (2.0-8.3) x10*3/uL Absolute Nucleated RBC 0.000 (0.0-0.012) X10*3/uL Nucleated RBC % (auto) 0.0 (0.0-0.2) /100WBC ESR 32 H (0-20) MM/HR Sodium 142 (135-145) mmol/L Potassium 3.7 (3.3-5.1) mmol/L Chloride 108 (96-108) mmol/L Carbon Dioxide 27 (22-29) mmol/L Anion Gap 11 L (12-20) BUN 7 L (9-16) mg/dL Creatinine 0.66 (0.5-1.4) mg/dL Estim Creat Clear Calc 155.1 Estimated GFR > 60 Random Glucose 115 (60-115) mg/dL Calcium 9.1 (8.4-10.2) mg/dL Total Bilirubin 0.2 (0.0-1.0) mg/dL AST 35 H (5-31) U/L ALT 30 (0-31) U/L Alkaline Phosphatase 67 (39-117) U/L C-Reactive Protein 1.15 H (< or = 0.50) mg/dL Total Protein 7.2 (6.5-8.0) g/dL Albumin 4.0 (3.5-5.0) g/dL Hold Red Top See Note COVID-19 (DEBRA) Negative (Negative) COVID-19 Clin Com See Note Influenza Type A (CIARA) Negative (Negative) Influenza Type B (CIARA) Negative (Negative) Influenza A & B Note See Note Independent Interpretation I performed an independent interpretation of an: CT Scan Radiology Impression Discussion of test interpretation with radiology: I have reviewed the radiologist's reading. External Record Review External record reviewed: Inpatient record, Office record, Outpatient record, Prior outpatient labs, Prior outpatient radiology, Primary care record and Outside ED record Prescription Management I considered prescription management with: Pain Medication Chronic Conditions Patient?s care impacted by: Other (obesity ) Critical Care Time Critical Care Time Critical Care Time: Yes Total Critical Care Time: 35 Attestation: I attest to this time spent taking care of the patient, obtaining history, physical, reviewing labs, imaging, treatment of patients condition +/- specialist/hospitalist consult +/- procedure Discharge Plan Discharge Clinical Impression: Headache Patient Disposition: Home, Self-Care Instructions: Acute Headache (DC) Additional Instructions: Take your medications as prescribed. If you were prescribed antibiotics today, it is important that you take your medication to their entirety, do not skip any doses, do not finish them early. Follow-up with your primary care provider this week. Return to the emergency department with new or worsening symptoms. Such as fevers, chills, chest pain, shortness of breath, nausea, vomiting, dizziness, headache, vision changes, lethargy In case of emergency call 911 Prescriptions: No Action famotidine [Pepcid] 20 mg tablet 20 mg PO DAILY Qty: 10 0RF cetirizine 10 mg tablet 10 mg PO DAILY PRN (Reason: allergy symptoms) Qty: 30 0RF prednisone 20 mg tablet 40 mg PO DAILY 4 Days Qty: 8 0RF famotidine 20 mg tablet 20 mg PO DAILY 7 Days Qty: 7 0RF prednisone 20 mg tablet 60 mg PO DAILY 5 Days Qty: 15 0RF nitrofurantoin monohyd/m-cryst [Macrobid] 100 mg capsule 100 mg PO Q12H 7 Days Qty: 14 0RF Rx Instructions: must administer with a meal/food benzonatate 100 mg capsule 100 mg PO TID PRN (Reason: cough) Qty: 30 0RF hydrocodone-homatropine [Hycodan] 5-1.5 mg/5 mL (5 mL) syrup 5 ml PO Q4H PRN (Reason: cough) Qty: 60 0RF Rx Instructions: Partial Fill upon patient request. fluticasone propionate [Flonase Allergy Relief] 50 mcg/actuation spray,suspension 1 spray intranasal BID Qty: 16 0RF Rx Instructions: administer into each nostril ibuprofen 600 mg tablet 600 mg PO Q8H PRN (Reason: fever or pain) Qty: 14 0RF codeine-guaifenesin 10-100 mg/5 mL liquid 5 ml PO Q4-6H PRN (Reason: cough) Qty: 120 0RF methylprednisolone [Medrol (Art)] 4 mg tablets,dose pack 4 mg PO QAM Qty: 21 0RF Rx Instructions: Use per package instructions ketorolac 10 mg tablet 10 mg PO Q6H PRN (Reason: pain) Qty: 20 0RF Rx Instructions: maximum total duration of 5 days from all oral, intranasal, or parenteral formulations. The patient received an intramuscular dose of Toradol here in the emergency room Referrals: Kimmie Guallpa NP [Primary Care Provider, Medical] - 1 week Print Language: Estonian
[2025-01-31 15:08] LABS: IDNOW Serial# 58CA691E; Influenza B2 Negative (Negative)
[2025-01-31 15:10] LABS: COVID-19 Test Negative (Negative); IDNOW Serial# 6674DD1D
[2025-01-31 18:08] LABS: MANUAL DIFF FLAG NO
[2025-01-31 18:11] LABS: Hematocrit 37.0 % (37.0-47.0); Hemoglobin 11.1 g/dl (12.0-16.0); Imm Gran Abs Auto 0.04 X10*3/uL (0.00-0.03); Imm Gran Pct Auto 0.5 % (0.0-0.4); Lymphocytes Absolute Auto 1.6 X10*3/uL (1.2-4.9); Mean Corpuscular HGB Conc 30.0 g/dl (31.0-35.0); Mean Corpuscular Hemoglobin 23.9 pg (27.0-33.0); Mean Corpuscular Volume 79.7 fL (80.0-98.0); NRBC Abs Auto 0.000 X10*3/uL (0.0-0.012); NRBC Pct Auto 0.0 /100WBC (0.0-0.2); Platelet Count 336 X10*3/uL (160-400); Red Blood Count 4.64 X10*6/uL (4.20-5.50); White Blood Count 7.9 X10*3/uL (4.8-10.8)
[2025-01-31 18:24] LABS: Alanine Aminotransferase 30 U/L (0-31); Albumin Level 4.0 g/dL (3.5-5.0); Alkaline Phosphatase 67 U/L (39-117); Anion Gap 11 (12-20); Aspartate Amino Transferase 35 U/L (5-31); Blood Urea Nitrogen 7 mg/dL (9-16); Calcium 9.1 mg/dL (8.4-10.2); Carbon Dioxide 27 mmol/L (22-29); Chloride 108 mmol/L (96-108); Creatinine Clr Calc Pharmacy 155.1; Estimated Glomerular Filt Rate > 60; Potassium 3.7 mmol/L (3.3-5.1); Sodium 142 mmol/L (135-145); Total Protein 7.2 g/dL (6.5-8.0)
--- NOTE | 2025-01-31 19:10 | PC.NURSE ---
assumed care of pt, at change of shift and safe start pt mentioned no pain relief from medication given. pt states pain 9/10, respirations even and unlabored. provider advised of pain scale report. awaiting new orders.
[2025-01-31 19:16] VITALS: BP 117/64; PULSE 79; RESP 18; TEMP 37.1; O2SAT 96
--- NOTE | 2025-01-31 19:23 | PC.NURSE ---
pt medicated per JUN for further px relief. pt on phone when this RN entered the room, v/s DOMINICKL.
[2025-01-31] MEDS: Magnesium Hydrox/Alum Hydrox 30 ML ORAL.SUSP 15 ML PO (21:08)
--- NOTE | 2025-01-31 22:19 | PC.NURSE ---
pt states both headache and abdominal pain are resolved at this time. Pt sleeping when I entered room.
[2025-01-31 22:41] VITALS: BP 111/51; PULSE 73; RESP 18; TEMP 36.6; O2SAT 97
--- NOTE | 2025-01-31 22:42 | PC.NURSE ---
t request work excuse note for tomorrow, provider Alfonso advised.
[2025-01-31 22:51] VITALS: BP 111/51; PULSE 73; RESP 18; TEMP 36.6; O2SAT 97
== END 2025-01-31 22:48 | disposition home or self-care (01) ==
PROVIDERS: Physician Assistant; Registered Nurse Emergency; Emergency Provider Emergency Medicine; PCP Nurse Practitioner Family
DX: R51.9 Headache, unspecified (principal); M54.2 Cervicalgia; Z03.818 Encounter for observation for suspected exposure to other biological agents ruled out
CPT/HCPCS: 36415; 70450; 72125; 80053; 85025; 85652; 86140; 87502; 87635; 96361; 96374; 96375; 99284; J1885; J2270

== ENCOUNTER → 2025-01-31 18:11 | Outpatient (BNV) | payer OTHER, SELFPAY | PROVIDERS: Emergency Provider Emergency Medicine; PCP Nurse Practitioner Family; Visit Provider Radiology Diagnostic Radiology | DX: M54.2 Cervicalgia (principal); R51.9 Headache, unspecified | CPT/HCPCS: 70450; 72125 ==

== ENCOUNTER 2025-04-02 08:26 | Outpatient (AMB) | payer OTHER, SELFPAY ==
[2025-04-02 09:07] VITALS: BP 130/92; PULSE 79; O2SAT 98; BMI 46.1
--- NOTE | 2025-04-02 09:07 | A.OFFPC_ITS ---
Vital Signs 04/02/25 09:07 Height 5 ft 5 in Weight 277 lb BMI 46.1 BP 130/92 H Blood Pressure Location Lt brachial Position Sitting Pulse 79 Pulse Source Pulse Oximeter Pulse Oximetry (%) 98 Oxygen Delivery Method Room Air Intake Visit Reasons: establish care Public Health Specialist Required: No Accompanied by: Self / Same As Patient Allergies diphenhydramine (From Benadryl) Allergy (Verified 04/02/25 09:27) Anxiety Medication List - Last Reconciled 04/02/25 by Kaelyn Stewart MD ibuprofen 600 mg PO Q8H PRN tramadol 50 mg PO TID PRN Tobacco use date assessed: 04/02/25 Dental Screening Dental Screen Date: 04/02/25 Did you have a dental visit in the last 12 months?: Yes Did you have a dental problem in the last 6 months where you did not have access to dental care?: No Was dental information given to patient?: Patient has dentist HPI HPI Comments History of Present Illness Details The patient is a 34 year old female presenting for management of multiple chronic conditions and establishing care. She has morbid obesity with a BMI of 46.1 and is interested in a referral for weight management. The patient has fibromyalgia, for which she takes tramadol, which helps control her pain and allows her to stand for her 8-hour workday. Recent lab work showed some anemia, and the patient confirms she experiences heavy menstrual periods. The patient was noted to have some depression with a PHQ-9 score of 7, but denied wanting counseling or medication for it, though she later requested something for anxiety. She experiences severe migraines 4-5 times per month. She also reports difficulty sleeping, which she attributes to a combination of anxiety and a sensation of an anthill in my legs at night after working long hours. The patient has a known allergy to Benadryl. [facility] Medical History No known health problems Family History Mother Fibromyalgia HTN (hypertension) Brother No problems noted. Sister No problems noted. Son No problems noted. Daughter No problems noted. Daughter No problems noted. Social History Housing: Apartment Alcohol intake: never Patient Tobacco Use Status: Never used Tobacco Tobacco use type: Cigarette e-Cigarette/Vaping Use: Never Used Second Hand Smoke Exposure: No service: No Current occupational status: employed Current occupation: Dietary Current occupational exposures/hazards: No Cognitive needs: No Hearing needs: No Vision needs: Yes Questionnaire PHQ-9 Over the last 2 weeks, how often have you been bothered by any of the following problems? 1. Little interest or pleasure in doing things: several days 2. Feeling down, depressed, or hopeless: not at all 3. Trouble falling or staying asleep, or sleeping too much: nearly every day 4. Feeling tired or having little energy: nearly every day 5. Poor appetite or overeating: not at all 6. Feeling bad about yourself - or that you are a failure or have let yourself or your family down: not at all 7. Trouble concentrating on things, such as reading the newspaper or watching television: not at all 8. Moving or speaking so slowly that other people could have noticed. Or the opposite - being so fidgety or restless that you have been moving around a lot more than usual: not at all 9. Thoughts that you would be better off or of hurting yourself in some way: not at all Total score: 7 Depression Screening Interpretation: Positive Depression Screening Follow-up: Existing condition, New Medication prescribed and Follow-up Visit Requested Depression Screening Done: Yes [id number] - PHQ-9 Billing: Yes Source: Developed by Drs. Shawn Livingston, Carlene Silva, Db Pacheco and colleagues, with an educational julien from [employer]. Thrive Questionnaire Date Thrive assessed: 04/02/25 I am a: Patient What is your living situation today?: I have a steady place to live Within the past 12 months, did the food you bought not last and you didn't have the money to get more?: Often true Within the past 12 months, did you worry whether your food would run out before you got money to buy more?: Often true Do you have trouble paying for medicines?: No Do you have trouble getting transportation to medical appointments?: No Do you have trouble paying your heating and electricity bill?: No Do you have trouble taking care of your child, family member or friend?: No Do you have trouble with day-to-day activities such as bathing, preparing meals, shopping, managing finances, etc.?: No Are you currently unemployed and looking for a job?: Yes Are you interested in more education?: No Please select the resources that you would like help with: None Currently or been in a relationship where the following occur: No concerns reported THRIVE Score: 2 AUDIT C Alcohol Use Questionnaire (AUDIT-C) 1. How often do you have a drink containing alcohol?: Never 3. How often do you have six or more drinks on one occasion?: Never Total Score: 0 CURTIS-7 AMB Questionnaire CURTIS-7 Date CURTIS - 7 assessed: 04/02/25 Feeling nervous, anxious, or on edge: 0 = Not at all Not being able to stop or control worryin = Not at all Worrying too much about different things: 0 = Not at all Trouble relaxin = Not at all Being so restless that it is hard to sit still: 0 = Not at all Becoming easily annoyed or irritable: 0 = Not at all Feeling afraid as if something awful might happen: 0 = Not at all Total CURTIS-7 score (0-4 normal; 5-9 mild; 10-14 moderate; 15-21 severe): 0 Source: Developed by Drs. Shawn Livingston, Carlene Silva, Db Pacheco and colleagues, with an educational julien from [employer]. CURTIS-7 Assessment Billing CURTIS-7 Assessment Tool: CURTIS-7 Assessment 11482 Review of Systems Const All systems reviewed & are unremarkable except as noted in HPI and below Card Denies chest pain at rest, Denies chest pain with activity, Denies edema, Denies irregular heart rhythm, Denies claudication, Denies dyspnea, Denies dyspnea on exertion, Denies orthopnea, Denies paroxysmal nocturnal dyspnea and Denies slow heart rate Resp Denies cough, Denies dyspnea and Denies dyspnea on exertion GI Denies abdominal pain, Denies change in bowel habits, Denies excessive flatus, Denies nausea and Denies vomiting Physical exam (Primary Care) Vital Signs: Last Vital Signs Pulse 79 04/02/25 09:07 BP 130/92 H 04/02/25 09:07 Pulse Ox 98 04/02/25 09:07 Oxygen Delivery Method Room Air 04/02/25 09:07 BMI result Body Mass Index 46.1 BMI Assessment/Plan discussion: High BMI High, discussed plan: lifestyle, weight reduction, dietary and physical activity Tobacco/Smoking Status: Tobacco use Status Tobacco use date assessed 04/02/25 04/02/25 09:17 Patient Tobacco Use Status Never used Tobacco 04/02/25 09:17 Tobacco use type Cigarette 04/02/25 09:17 e-Cigarette/Vaping Use Never Used 04/02/25 09:17 PHQ-9: PHQ-9 Score PHQ-9: Total score 7 04/02/25 09:34 Depression Screening Interpretation: Positive Depression Screening Follow-up: Existing condition, New Medication prescribed and Follow-up Visit Requested Thrive Assessment: Date of Thrive Assessment Date Thrive assessed 04/02/25 04/02/25 09:17 Currently or been in a relationship where the following occur: No concerns reported Resp Effort & Inspection: normal respiratory effort Auscultation: clear to auscultation bilaterally Cardio Jugular venous distension: no JVD Rate: regular rate Rhythm: regular rhythm Heart sounds: S1 normal heart sound present and S2 normal heart sound present Extrem General: Yes full ROM Coding Level of Care Code Complex visit Add On G2211 Diagnoses Morbid obesity with BMI of 45.0-49.9, adult E66.01; Z68.42 Mild recurrent major depression F33.0 CURTIS (generalized anxiety disorder) F41.1 Migraines G43.909 Fibromyalgia M79.7 Microcytic anemia D50.9 Insomnia G47.00 Additional Codes CURTIS-7 Assessment Billing - CURTIS-7 Assessment Tool: CURTIS-7 Assessment 57333 ([id number]) PHQ-9 - 38012 - PHQ-9 Billing: Yes ([id number]) Time Spent (min) 22 Assessment & Plan Assessment & Plan (1) Morbid obesity with BMI of 45.0-49.9, adult: Code(s): E66.01 - Morbid (severe) obesity due to excess calories; Z68.42 - Body mass index [BMI] 45.0-49.9, adult Category: Medical (2) Mild recurrent major depression: Code(s): F33.0 - Major depressive disorder, recurrent, mild Category: Medical (3) CURTIS (generalized anxiety disorder): Code(s): F41.1 - Generalized anxiety disorder Category: Medical (4) Morbid obesity with BMI of 45.0-49.9, adult: Code(s): E66.01 - Morbid (severe) obesity due to excess calories; Z68.42 - Body mass index [BMI] 45.0-49.9, adult Category: Medical (5) Migraines: Code(s): G43.909 - Migraine, unspecified, not intractable, without status migrainosus Category: Medical (6) Fibromyalgia: Code(s): M79.7 - Fibromyalgia Category: Medical (7) Microcytic anemia: Code(s): D50.9 - Iron deficiency anemia, unspecified Category: Medical (8) Insomnia: Code(s): G47.00 - Insomnia, unspecified Category: Medical Plan Plan 1. Morbid Obesity The patient has a BMI of 46.1. A referral will be placed for a weight management program. 2. Fibromyalgia The patient uses tramadol for fibromyalgia pain, which allows her to work. She reports leg pain and paresthesia at night after standing for long hours, which interferes with sleep. A medication was discussed that could potentially help with sleep and serve as a preventative measure. 3. Depression With Anxious Distress The patient has a PHQ-9 score of 7, indicating mild depression, and also reports anxiety that affects her sleep. She declined counseling but was open to medication. Wellbutrin will be prescribed for depression with anxiety. 4. Migraine The patient experiences 4-5 severe migraines per month. An abortive medication will be prescribed for when migraines occur. A preventative medication was also considered that may help with sleep. 5. Anemia The patient was found to have anemia on recent labs, which is likely related to her self-reported heavy menstrual bleeding. Orders: Orders Lipid Panel Today Kaelyn Stewart MD E66.01 - Morbid (severe) obesity due to excess calories, E78.5 - Hyperlipidemia, unspecified, Z68.42 - Body mass index [ BMI] 45.0-49.9, adult Thyroid Stimulating Hormone Today Kaelyn Stewart MD E66.01 - Morbid (severe) obesity due to excess calories, Z68.42 - Body mass index [BMI] 45.0-49.9, adult Complete Blood Count Auto Diff Today Kaelyn Stewart MD D64.9 - Anemia, unspecified IRON PROFILE Today Kaelyn Stewart MD D64.9 - Anemia, unspecified Comprehensive [place]. Panel Fast Today Kaelyn Stewart MD E66.01 - Morbid (severe) obesity due to excess calories, Z68.42 - Body mass index [BMI] 45.0-49.9, adult Vitamin B12 and Folate Today Kaelyn Stewart MD E53.8 - Deficiency of other specified B group vitamins Vitamin D 25-OH Total Today Kaelyn Stewart MD E55.9 - Vitamin D deficiency, unspecified Referrals Medical Weight Management Referral Kaelyn Stewart MD E66.01 - Morbid (sakshi re) obesity due to excess calories, Z68.42 - Body mass index [BMI] 45.0-49.9, adult Medications: New sumatriptan succinate do not exceed 8 doses per 24 hrs 25 mg PO Q2-4H PRN 9 tabs 3RF migraine headache 30 days Kaelyn Stewart MD bupropion HCl XL (Wellbutrin XL) 150 mg PO QAM 90 tabs 1RF 90 days Kaelyn Stewart MD F33.0 - Major depressive disorder, recurrent, mild, F41.1 - Generalized anxiety disorder tramadol 50 mg PO TID PRN 90 tabs 0RF pain 30 days Kaelyn Stewart MD M79.7 - Fibromyalgia topiramate 25 mg PO BEDTIME 90 tabs 1RF 90 days Kaelyn Stewart MD G43.909 - Migraine, unspecified, not intractable, without status migrainosus Discontinued nitrofurantoin monohyd/m-cryst 100 mg (Macrobid) must administer with a meal/food Discontinued Reason: Patient Completed Course 100 mg PO Q12H 7 days 14 caps 0RF cetirizine Discontinued Reason: Patient no longer taking 10 mg PO DAILY PRN 30 tabs 0RF allergy symptoms famotidine (Pepcid) Discontinued Reason: Duplicate 20 mg PO DAILY 10 tabs 0RF famotidine Discontinued Reason: Patient no longer taking 20 mg PO DAILY 7 days 7 tabs 0RF prednisone Discontinued Reason: Patient Completed Course 40 mg (2 x 20 mg) PO DAILY 4 days 8 tabs 0RF prednisone Discontinued Reason: Patient Completed Course 60 mg (3 x 20 mg) PO DAILY 5 days 15 tabs 0RF codeine-guaifenesin 10-100 mg/5 mL Discontinued Reason: Patient Completed Course 5 mL PO Q4-6H PRN 120 mL 0RF cough ketorolac maximum total duration of 5 days from all oral, intranasal, or parenteral formulations. The patient received an intramuscular dose of Toradol here in the emergency room Discontinued Reason: Patient Completed Course 10 mg PO Q6H PRN 20 tabs 0RF pain Zoya Johnson, LARISSA methylprednisolone (Medrol (Art)) Use per package instructions Discontinued Reason: Patient Completed Course 4 mg PO QAM 21 ea 0RF benzonatate Discontinued Reason: Patient Completed Course 100 mg PO TID PRN 30 caps 0RF cough fluticasone propionate 50 mcg/actuation (Flonase Allergy Relief) administer into each nostril Discontinued Reason: Patient no longer taking 1 spray intranasal BID 16 grams 0RF hydrocodone-homatropine 5-1.5 mg/5 mL (5 mL) (Hycodan) Partial Fill upon patient request. Discontinued Reason: Patient Completed Course 5 mL PO Q4H PRN 60 mL 0RF cough
== END 2025-04-02 09:42 | disposition home or self-care (01) ==
LOC: HO.HMCH 08:28
PROVIDERS: PCP Internal Medicine; Visit Provider Internal Medicine
DX: E66.01 Morbid (severe) obesity due to excess calories (principal); Z68.42 Body mass index [BMI] 45.0-49.9, adult; F33.0 Major depressive disorder, recurrent, mild; F41.1 Generalized anxiety disorder; G43.909 Migraine, unspecified, not intractable, without status migrainosus; M79.7 Fibromyalgia; D50.9 Iron deficiency anemia, unspecified; G47.00 Insomnia, unspecified

== ENCOUNTER → 2025-04-02 08:26 | Outpatient (BNVA) | payer OTHER, SELFPAY | PROVIDERS: Visit Provider Internal Medicine | DX: E66.01 Morbid (severe) obesity due to excess calories (principal); M79.7 Fibromyalgia; F33.0 Major depressive disorder, recurrent, mild; F41.1 Generalized anxiety disorder; G43.909 Migraine, unspecified, not intractable, without status migrainosus; D50.9 Iron deficiency anemia, unspecified; G47.00 Insomnia, unspecified; Z68.42 Body mass index [BMI] 45.0-49.9, adult; Z79.891 Long term (current) use of opiate analgesic | CPT/HCPCS: 96127; 99212 ==

== ENCOUNTER 2025-04-05 08:04 | Outpatient (REF) | payer OTHER, SELFPAY ==
[2025-04-05 08:17] LABS: MANUAL DIFF FLAG NO
[2025-04-05 08:53] LABS: Hematocrit 37.4 % (37.0-47.0); Hemoglobin 11.1 g/dl (12.0-16.0); Imm Gran Abs Auto 0.04 X10*3/uL (0.00-0.03); Imm Gran Pct Auto 0.5 % (0.0-0.4); Lymphocytes Absolute Auto 1.6 X10*3/uL (1.2-4.9); Mean Corpuscular HGB Conc 29.7 g/dl (31.0-35.0); Mean Corpuscular Hemoglobin 23.6 pg (27.0-33.0); Mean Corpuscular Volume 79.6 fL (80.0-98.0); NRBC Abs Auto 0.000 X10*3/uL (0.0-0.012); NRBC Pct Auto 0.0 /100WBC (0.0-0.2); Platelet Count 289 X10*3/uL (160-400); Red Blood Count 4.70 X10*6/uL (4.20-5.50); White Blood Count 7.8 X10*3/uL (4.8-10.8)
[2025-04-05 09:53] LABS: Alanine Aminotransferase 27 U/L (0-31); Albumin Level 4.1 g/dL (3.5-5.0); Alkaline Phosphatase 62 U/L (39-117); Anion Gap 9 (12-20); Aspartate Amino Transferase 30 U/L (5-31); Blood Urea Nitrogen 7 mg/dL (9-16); Calcium 9.0 mg/dL (8.4-10.2); Carbon Dioxide 25 mmol/L (22-29); Chloride 108 mmol/L (96-108); Cholesterol 140 mg/dL (<200); Estimated Glomerular Filt Rate > 60; HDL Cholesterol 42 mg/dL (>40); Iron 26 mcg/dL (30-160); Percent Iron Saturation 7 % (15-50); Potassium 3.9 mmol/L (3.3-5.1); Sodium 138 mmol/L (135-145); Total Iron Binding Capacity 362 mcg/dL (228-428); Total Protein 7.6 g/dL (6.5-8.0); Triglycerides 76 mg/dL (<150); Unsaturated Iron Binding 336 ug/dL
[2025-04-05 10:04] LABS: Folate 8.5 ng/mL (> or = 4.0); Vitamin B12 181 pg/mL (200-900)
[2025-04-05 10:11] LABS: Thyroid Stimulating Hormone 0.85 uIU/mL (0.32-4.0)
== END 2025-04-05 08:05 | disposition home or self-care (01) ==
LOC: HO.LAB 08:04
PROVIDERS: PCP Internal Medicine; Visit Provider Internal Medicine
DX: E66.01 Morbid (severe) obesity due to excess calories (principal); D64.9 Anemia, unspecified; E78.5 Hyperlipidemia, unspecified; E55.9 Vitamin D deficiency, unspecified; E53.8 Deficiency of other specified B group vitamins; Z68.42 Body mass index [BMI] 45.0-49.9, adult
CPT/HCPCS: 36415; 80053; 80061; 82306; 82607; 82746; 83540; 84443; 85025